=== PATIENT | female | born 1970 | race Caucasian/White ===

== ENCOUNTER 2016-11-02 08:33 | Emergency (ER) | payer MEDICARE, OTHER ==
[~2016-11-02] VITALS: Ht 154.9 cm; Wt 107.7 kg
[~2016-11-02 08:33] MED LIST: ALBU17I INH; AMIT100 PO; BUSP15TA PO; FISH500C PO; FLEX10TA OR; GABA300 PO; MOME0.05 TOP; NAPR-576 PO; PARO40TA PO; PRAV40TA PO; VENTAER INH
[2016-11-02 08:37] VITALS: BP 136/108; PULSE 110; RESP 16; TEMP 98.7; O2SAT 96
[2016-11-02] MEDS ORDERED: GABA300C5 PO (09:12)
[2016-11-02] MEDS ORDERED: NAPR500T PO (09:12)
[2016-11-02] MEDS ORDERED: HYDR-3516 PO (09:12)
[2016-11-02] MEDS ORDERED: ELOC0.1O TOPICAL (09:12)
[2016-11-02] MEDS ORDERED: SERT-129 PO (09:12)
[2016-11-02] MEDS ORDERED: VENTAER INH (09:12)
[2016-11-02] MEDS ORDERED: LOVA10TA PO (09:12)
[2016-11-02] MEDS ORDERED: ROBA500T PO (09:12)
[2016-11-02] MEDS ORDERED: AMIT1TAB79 PO (09:12)
[2016-11-02] MEDS ORDERED: LIDOCAINE 1%/EPINEPHrine 1:100,000 SOLN 20 ML VIAL INFIL ONE (10:30)
--- NOTE | 2016-11-02 11:21 | RADHPO ---
EXAM DATE/TIME: 11/02/2016 10:49 [facility] COMPARISON: No previous studies available for comparison. INDICATIONS : Left humerus pain after fall. MEDICAL HISTORY : Previous humerus fracture and shoulder dislocation. SURGICAL HISTORY : None. ENCOUNTER: Initial ACUITY: 2 days PAIN SCORE: 10/10 LOCATION: Left proximal humerus FINDINGS: There is a humeral neck fracture with angulation. No dislocation. There is proximal migration of the humeral shaft. A.c. joint intact. CONCLUSION: 1. Displaced and angulated humeral neck fracture. Ranjan Pearson MD on November 02, 2016 at 11:19 Board Certified Radiologist. This report was verified electronically.
--- NOTE | 2016-11-02 11:21 | RADHPO ---
EXAM DATE/TIME: 11/02/2016 10:47 [facility] COMPARISON: No previous studies available for comparison. INDICATIONS : Left shoulder pain after fall. MEDICAL HISTORY : Previous left humerus fracture and shoulder dislocation. SURGICAL HISTORY : None. ENCOUNTER: Initial ACUITY: 2 days PAIN SCORE: 10/10 LOCATION: Left shoulder FINDINGS: There is a humeral neck fracture with angulation and displacement. No dislocation of the humeral head identified on the current exam. There is some proximal migration of the humeral shaft. Acromioclavic ular joint appears intact. CONCLUSION: 1. Angulated humeral neck fracture. Ranjan Pearson MD on November 02, 2016 at 11:17 Board Certified Radiologist. This report was verified electronically.
--- NOTE | 2016-11-02 11:23 | RADHPO ---
EXAM DATE/TIME: 11/02/2016 10:54 [facility] COMPARISON: No previous studies available for comparison. INDICATIONS : Left forearm pain after fall. MEDICAL HISTORY : Previous humerus fracture SURGICAL HISTORY : None. ENCOUNTER: Initial ACUITY: 2 days PAIN SCORE: 10/10 LOCATION: Left forearm. FINDINGS: Two view examination of the left forearm demonstrates a cast overlying the distal arm and forearm and wrist. No forearm fracture identified. CONCLUSION: 1. No fracture identified in the forearm. Ranjan Pearson MD on November 02, 2016 at 11:20 Board Certified Radiologist. This report was verified electronically.
[2016-11-02] MEDS ORDERED: CEPH-460 PO (11:45)
--- NOTE | 2016-11-02 11:45 | PD ---
HPI Chief Complaint: Fall Time Seen by Provider: 10:25 Travel History International Travel<30 days: No Contact w/Intl Traveler<30days: No Traveled to known affect area: No History of Present Illness HPI 46-year-old female complains of left arm pain and scalp laceration. Patient states that she fell yesterday evening. Patient denies loss of consciousness. Patient denies any headache or neck pain. Patient denies any visual change. Patient denies any neck pain. Patient denies any chest pain or shortness of breath. Patient denies abdominal pain. Patient complaining of sharp pain diffuse over the left shoulder and left arm. Patient has history of ongoing fracture left humerus with displacement dislocation and on the long arm splint now. Patient has been seen by orthopedist. Patient denies any other new extremity injury. On a scale of 1-10 the pain is a 5. PFSH Past Medical History Blood Disorders: Yes (SPLEENIC FX) Anxiety: Yes Depression: Yes Diabetes: No Diminished Hearing: No Fibromyalgia: Yes Psychiatric: Yes Immunizations Current: No Tetanus Vaccination: Unknown ?: Not Menopausal: Yes : 1 : 1 Past Surgical History Abdominal Surgery: Yes (LAPAROSCOPY) Other Surgery: Yes (SPLEEN REPAIR 1976) Social History Alcohol Use: Yes (DAILY) Tobacco Use: Yes (1 PPD) Substance Use: No Allergies-Medications (Allergen,Severity, Reaction): Coded Allergies: No Known Allergies (Verified , 11/02/16) Reported Meds & Prescriptions Reported Meds & Active Scripts Active Reported Robaxin (Methocarbamol) 500 Mg Tab Unknown Dose PO QID Hydrocodone-Acetaminophen 5-325 mg Tab 1 Tab PO Q4H PRN Lovastatin 10 Mg Tab 10 Mg PO DAILY Sertraline (Sertraline HCl) 100 Mg Tab 100 Mg PO BID Naproxen 500 Mg Tab 500 Mg PO BID Elocon Topical (Mometasone Furoate) 0.01 % Oint 1 Applic TOPICAL DAILY Gabapentin 300 Mg Cap 300 Mg PO TID Elavil (Amitriptyline HCl) 25 Mg Tab 100 Mg PO DAILY Ventolin Hfa 18 GM Inh (Albuterol Sulfate) 90 Mcg/Act Aer 2 Puff INH Q4H PRN Review of Systems General / Constitutional: No: Fever Eyes: No: Visual changes HENT: No: Headaches Cardiovascular: No: Chest Pain or Discomfort Respiratory: No: Shortness of Breath Gastrointestinal: No: Abdominal Pain Genitourinary: No: Dysuria Musculoskeletal: Positive: Pain Skin: No Rash Neurologic: No: Weakness Psychiatric: No: Depression Endocrine: No: Polydipsia Hematologic/Lymphatic: No: Easy Bruising Physical Exam Narrative GENERAL: Well-nourished, well-developed patient. SKIN: Warm and dry. HEAD: Normocephalic. Patient has 2 cm laceration left parietal area of the scalp. No active bleeding. EYES: No scleral icterus. No injection or drainage. Pupils 3 mm equal reactive. NECK: Supple, trachea midline. No JVD or lymphadenopathy. CARDIOVASCULAR: Regular rate and rhythm without murmurs, gallops, or rubs. RESPIRATORY: Breath sounds equal bilaterally. No accessory muscle use. GASTROINTESTINAL: Abdomen soft, non-tender, nondistended. MUSCULOSKELETAL: No cyanosis, or edema. BACK: Nontender without obvious deformity. No CVA tenderness. Neurologic exam normal. Data Data Last Documented VS Vital Signs Date Time Temp Pulse Resp B/P Pulse Ox O2 Delivery O2 Flow Rate FiO2 11/02/16 08:37 98.7 110 16 136/108 96 Orders Lidocai-Epi 1%-1:100,000 Inj (Xylocaine- (11/02/16 10:30) Forearm (2vws) (11/02/16 10:33) Humerus (Min 2vws) (11/02/16 10:33) Shoulder, Limited(2vws) (11/02/16 10:33) MDM Medical Decision Making Medical Screen Exam Complete: Yes Emergency Medical Condition: Yes Interpretation(s) Last Impressions Shoulder X-Ray 11/02/161032 Signed Impressions: Service Date/Time: Wednesday, November 02, 2016 10:47 - CONCLUSION: 1. Angulated humeral neck fracture. Ranjan Pearson MD Radius/Ulna X-Ray 11/02/16 103 Signed Impressions: Service Date/Time: Wednesday, November 02, 2016 10:54 - CONCLUSION: 1. No fracture identified in the forearm. Ranjan Pearson MD Humerus X-Ray 11/02/161032 Signed Impressions: Service Date/Time: Wednesday, November 02, 2016 10:49 - CONCLUSION: 1. Displaced and angulated humeral neck fracture. Ranjan Pearson MD Differential Diagnosis Differential diagnosis including scalp laceration, skull fracture, intracranial hemorrhage, left arm and shoulder contusion versus fracture versus dislocation. Narrative Course 46-year-old female with scalp laceration and left arm injury. History of left humeral fracture and displacement. Diagnosis Primary Impression: Scalp laceration Qualified Code: S01.01XA - Scalp laceration, initial encounter Additional Impressions: Contusion of left arm Qualified Code: S40.022A - Contusion of left arm, initial encounter Left humeral fracture Qualified Code: S42.212S - Closed displaced fracture of surgical neck of left humerus, unspecified fracture morphology, sequela Patient Instructions: General Instructions Departure Forms: Tests/Procedures Additional Instructions: Take medications as directed. Follow-up with an orthopedist. Staple removal in 7 days. Med/Other Pt SpecificInfo: Prescription(s) given Scripts Cephalexin (Keflex)500 Mg [id number] Mg PO Q8H #15 CAP Ref 0 Prov:Bandar Morales MD 11/02/16 Disposition: 01 DISCHARGE HOME Condition: Stable Bandar Morales MD Nov 02, 2016 11:45
--- NOTE | 2016-11-02 11:48 | PD ---
Physical Exam Date Seen by Provider: Nov 02, 2016 Time Seen by Provider: 11:46 Narrative 46-year-old female that presents to the ED for evaluation of laceration to the scalp. Please refer to my attendings note as he asked me to repair laceration. Data Data Last Documented VS Vital Signs Date Time Temp Pulse Resp B/P Pulse Ox O2 Delivery O2 Flow Rate FiO2 11/02/16 08:37 98.7 110 16 136/108 96 Orders Lidocai-Epi 1%-1:100,000 Inj (Xylocaine- (11/02/16 10:30) Forearm (2vws) (11/02/16 10:33) Humerus (Min 2vws) (11/02/16 10:33) Shoulder, Limited(2vws) (11/02/16 10:33) MDM Medical Record Reviewed: Yes Supervised Visit with DARRIN: No Procedures Procedure Narrative LACERATION LOCATION: right scalp LENGTH: 2 cm NUMBER OF STITCHES/LIZANDRO: 3 lizandro REPAIR: The area of the laceration was prepped with Betadine and sterilely draped. The laceration was infiltrated with 1% Xylocaine. The wound was copiously irrigated and explored without evidence of foreign body, tendon injury or neurovascular injury. The wound was closed using sterile stapler. This was a 1 layer repair. A sterile dressing was applied. The patient was advised to keep the dressing clean and dry. Patient tolerated the procedure well. Diagnosis Primary Impression: Scalp laceration Qualified Code: S01.01XA - Scalp laceration, initial encounter Additional Impressions: Left humeral fracture Qualified Code: S42.212S - Closed displaced fracture of surgical neck of left humerus, unspecified fracture morphology, sequela Contusion of left arm Qualified Code: S40.022A - Contusion of left arm, initial encounter Patient Instructions: General Instructions Departure Forms: Tests/Procedures Additional Instruction: Take medications as directed. Follow-up with an orthopedist. Staple removal in 7 days. Scripts Cephalexin (Keflex)500 Mg [id number] Mg PO Q8H #15 CAP Ref 0 Prov:Bandar Morales MD 11/02/16 Disposition: 01 DISCHARGE HOME Condition: Stable N[place] Stokes Nov 02, 2016 11:47
== END 2016-11-02 12:00 | disposition home or self-care (01) ==
LOC: PHED 08:33 → PHEFT 12:00
DX: S01.01XA Laceration without foreign body of scalp, initial encounter (principal); S40.022A Contusion of left upper arm, initial encounter; S42.295A Other nondisplaced fracture of upper end of left humerus, initial encounter for closed fracture; F17.210 Nicotine dependence, cigarettes, uncomplicated; M79.7 Fibromyalgia; W19.XXXA Unspecified fall, initial encounter; Y93.9 Activity, unspecified; Y92.9 Unspecified place or not applicable
CPT/HCPCS: 12001; 73030; 73060; 73090